=== PATIENT | male | born 1985 | race Caucasian/White ===

== ENCOUNTER 2020-05-08 03:50 | Emergency (ER) | payer OTHER ==
[~2020-05-08] VITALS: Ht 165.1 cm; Wt 72.6 kg
[2020-05-08 03:59] VITALS: BP 121/84
--- NOTE | 2020-05-08 04:05 | NUR ---
PT TAKEN TO BED 4
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
--- NOTE | 2020-05-08 04:16 | NUR ---
Dr. Gonzalez examining patient.
[2020-05-08] MEDS ORDERED: ACETAMINOPHEN 325 MG TAB PO ONE (04:20)
[2020-05-08] MEDS ORDERED: SULFAMETH/TRIMETH DS 800/160MG 1 TAB PO ONE (04:25)
[2020-05-08] MEDS ORDERED: ACETAMINOPHEN 325 MG TAB ONE (04:29)
[2020-05-08] MEDS ORDERED: SULFAMETH/TRIMETH DS 800/160MG 1 TAB ONE (04:30)
[2020-05-08 04:38] VITALS: BP 121/84
--- NOTE | 2020-05-08 04:38 | NUR ---
Patient discharged with v/s stable. Written and verbal after care instructions given and explained. Patient alert, oriented and verbalized understanding of instructions. Wheel Chair Assisted with to car. All questions addressed prior to discharge. ID band removed. Patient advised to follow up with PMD. Rx of bactrim given. Patient educated on indication of medication including possible reaction and side effects. Opportunity to ask questions provided and answered.
== END 2020-05-08 04:38 | disposition home or self-care (01) ==
LOC: MED 03:50
DX: L03.115 Cellulitis of right lower limb (principal)
CPT/HCPCS: 99283

== ENCOUNTER 2021-02-22 23:04 | Emergency (ER) | payer OTHER ==
[~2021-02-22] VITALS: Ht 165.1 cm; Wt 79.8 kg
[2021-02-22 23:08] VITALS: BP 143/90
--- NOTE | 2021-02-22 23:11 | NUR ---
To ED bed 9
--- NOTE | 2021-02-22 23:23 | NUR ---
see complete assessment.
--- NOTE | 2021-02-23 00:01 | NUR ---
Dr. Mixon examining patient.
[2021-02-23 00:25] LABS: BASOPHILS % (AUTO) 0.5 % (0.0-2.0); EOSINOPHILS # (AUTO) 0.1 K/uL (0-0.4); EOSINOPHILS % (AUTO) 1.3 % (0.0-4.0); HEMATOCRIT 37.2 % (36-52); HEMOGLOBIN 12.6 g/dL (12.0-18.0); LYMPHOCYTES # (AUTO) 1.9 K/uL (2.0-11.5); LYMPHOCYTES % (AUTO) 36.8 % (20.5-51.1); MEAN CORPUSCULAR HEMOGLOBIN 28 pg (27-31); MEAN CORPUSCULAR HGB CONC 34 g/dL (33-37); MEAN CORPUSCULAR VOLUME 82.6 fL (80-94); MONOCYTES # (AUTO) 0.5 K/uL (0.8-1.0); MONOCYTES % (AUTO) 10.2 % (1.7-9.3); NEUTROPHILS # (AUTO) 2.7 K/uL (1.8-7.7); NEUTROPHILS % (AUTO) 51.2 % (42.2-75.2); PLATELET COUNT (AUTO) 199 K/uL (140-450); RED BLOOD CELL COUNT(AUTO) 4.51 MIL/uL (4.20-6.10); RED CELL DISTRIBUTION WIDTH 14.7 % (11.6-13.7); WHITE BLOOD COUNT (AUTO) 5.2 K/uL (4.8-10.8)
[2021-02-23 00:43] VITALS: BP 96/53
--- NOTE | 2021-02-23 00:46 | NUR ---
pt taken to CT via w/c
[2021-02-23 01:04] LABS: ANION GAP 8.3 (8-16); CARBON DIOXIDE 27.7 mmol/L (21-32); CHLORIDE 103 mmol/L (98-107); GLUCOSE 100 mg/dL (74-106); SODIUM SERUM 135 mmol/L (136-145)
[2021-02-23 01:05] LABS: ALBUMIN 3.4 g/dL (3.4-5.0); ASPARTATE AMINOTRANSFERASE 84 U/L (15-37); CREATININE 0.7 mg/dL (0.6-1.3); GFR ARICAN-AMERICAN 165 mL/min (>90); UREA NITROGEN, BLOOD 15 mg/dL (7-18)
[2021-02-23 01:10] LABS: BARBITURATE, URINE NEGATIVE ng/ml (NEG <=200)
[2021-02-23 01:11] LABS: BENZODIAZEPINE, URINE NEGATIVE ng/mL (NEG <=200); CANNABINOID, URINE POSITIVE ng/mL (NEG <=50); COCAINE, URINE NEGATIVE ng/mL (NEG <=300); OPIATE, URINE NEGATIVE ng/mL (NEG <=2000); PHENCYCLIDINE SCREEN,URINE NEGATIVE ng/mL (NEG <=25)
[2021-02-23] MEDS ORDERED: ACYCLOVIR 200 MG CAP PO ONE (02:15)
[2021-02-23] MEDS ORDERED: predniSONE 20 MG TAB PO ONE (02:15)
[2021-02-23] MEDS ORDERED: ACYC400T1 PO (02:25)
[2021-02-23] MEDS ORDERED: PRED20TA5 PO (02:25)
[2021-02-23] MEDS ORDERED: AMOX-999 PO (02:26)
[2021-02-23 02:28] LABS: TOTAL BILIRUBIN 0.4 mg/dL (0.0-1.0)
--- NOTE | 2021-02-23 02:42 | NUR ---
d/c with VSS. d/c education given. opportunity to ask questions given and answerd. rx of acyclovir and augmentin, prednisone given.
== END 2021-02-23 02:42 | disposition home or self-care (01) ==
LOC: MED 23:04
DX: R29.810 Facial weakness (principal); R59.1 Generalized enlarged lymph nodes
CPT/HCPCS: 36415; 70450; 70490; 80053; 80305; 85025; 99285; G0482; J7512